=== PATIENT | female | born 1940 | race Caucasian/White ===

== ENCOUNTER → 2017-05-02 | Outpatient (REF) | payer MEDICARE, OTHER ==
[~2017-05-02] MED LIST: /WARF25TA OR; ALEN70TA39 PO; ASPI325T PO; ASPI325T28 PO; ATOR1TAB19 PO; CYAN1000 IM; DRIS1CAP PO; HYDR12.56 PO; IRBE150T3 PO; IRON325T3 PO; LEVO100T4 PO; LEVO75TA4 PO; LEVO88TA3 PO; LOSA50TA20 PO; MULTCAP PO; SIMV10TA2 PO; ULTR50TA PO; VITA200015 PO; VITA500C PO; calcium citrate OR; iron OR; vitamin B12 INJ
[2017-05-02 14:11] LABS: FOLATE > 24.0 NG/ML; VITAMIN B12 LEVEL 715 PG/ML
[2017-05-02 14:20] LABS: FERRITIN 201 NG/ML (8-252); PERCENT SATURATION 39.8 % (13.2-45.0); TOTAL IRON BINDING CAPACITY 249 UG/DL (250-450)
== END ==
LOC: M LAB REF 13:36
PROVIDERS: ATTEND Internal Medicine Nephrology
DX: D64.9 Anemia, unspecified (principal)

== ENCOUNTER → 2017-09-27 | Outpatient (CLI) | payer MEDICARE, OTHER | LOC: M WHC 09:06 | DX: Z12.31 Encounter for screening mammogram for malignant neoplasm of breast (principal) | CPT/HCPCS: 77067 ==

== ENCOUNTER → 2020-03-25 | Outpatient (REF) | payer MEDICARE, OTHER ==
[~2020-03-25] MED LIST changes: -/WARF25TA OR; +ASPI-527 PO; -ASPI325T28 PO; +COUM1TAB18 OR; -LOSA50TA20 PO; +LOSA50TA88 PO
[2020-03-25 18:32] LABS: IRON (FE) 37 UG/DL (50-170); TOTAL IRON BINDING CAPACITY 284 UG/DL (250-450)
[2020-03-25 18:44] LABS: VITAMIN B12 LEVEL 523 PG/ML
[2020-03-25 18:45] LABS: FOLATE > 24.0 NG/ML
== END ==
LOC: M LAB REF 17:15
PROVIDERS: ATTEND Nurse Practitioner Family
DX: D64.9 Anemia, unspecified (principal)

== ENCOUNTER → 2021-01-26 | Outpatient (REF) | payer MEDICARE, OTHER | LOC: M LAB REF 12:43 | PROVIDERS: ATTEND Nurse Practitioner Family | DX: E83.42 Hypomagnesemia (principal) ==

== ENCOUNTER → 2021-05-27 | Outpatient (REF) | payer MEDICARE, OTHER | LOC: M LAB REF 17:17 | PROVIDERS: ATTEND Nurse Practitioner Family | DX: E83.42 Hypomagnesemia (principal) ==

== ENCOUNTER → 2022-08-10 | Outpatient (REF) | payer MEDICARE, OTHER ==
[~2022-08-10] MED LIST changes: +LOSA50TA28 PO; -LOSA50TA88 PO
[2022-08-10 18:28] LABS: POTASSIUM SERUM 4.8 MMOL/L (3.5-5.1)
== END ==
LOC: M LAB REF 17:12
PROVIDERS: ATTEND Nurse Practitioner Family
DX: N18.31 Chronic kidney disease, stage 3a (principal)

== ENCOUNTER → 2022-09-05 | Outpatient (CLI) | payer MEDICARE, BC ==
[~2022-09-05] MED LIST changes: +ISOVUE-300 61% 100ML VIAL As Ordered ONE; +LIDOCAINE 1% MDV 20ML VIAL As Ordered ONE; +methylPREDNISolone SUSP 40MG/ML 1ML VIAL (DEPO MEDROL) As Ordered ONE
== END ==
LOC: M RAD 14:19
PROVIDERS: ATTEND Physician Assistant
DX: M16.11 Unilateral primary osteoarthritis, right hip (principal)
CPT/HCPCS: 20610; 77002; J1030; Q9967

== ENCOUNTER → 2023-11-30 | Outpatient (CLI) | payer MEDICARE, BC ==
[~2023-11-30] MED LIST changes: +CALCCHW4 PO; +FERR325T3 PO; -ISOVUE-300 61% 100ML VIAL As Ordered ONE; +MAGN400T2 PO; +MULT1CAP3 PO; +VITA250T27 PO; -methylPREDNISolone SUSP 40MG/ML 1ML VIAL (DEPO MEDROL) As Ordered ONE
[2023-11-30 12:28] VITALS: TEMP 98.6
[2023-11-30 13:10] VITALS: BP 178/73; O2SAT 99
[2023-11-30 13:37] LABS: BASO # 0.1 10^3/uL (0.0-0.2); BASO % 0.6 % (0.0-1.0); EOS # 0.1 10^3/uL (0.0-0.5); EOS % 1.5 % (0.0-3.0); HEMATOCRIT 27.4 % (36.0-47.0); HEMOGLOBIN 8.5 g/dl (12.0-15.5); LYMPH # 1.8 10^3/uL (1.5-5.0); LYMPH % 20.5 % (24.0-44.0); MEAN CORPUSCULAR HEMOGLOBIN 26.2 pg (27.0-33.0); MEAN CORPUSCULAR VOLUME 84.6 fl (80.0-96.0); MONO % 10.9 % (2.0-8.0); NEUTROPHILS # 5.8 10^3/uL (1.5-8.5); NEUTROPHILS % 66.3 % (36.0-66.0); PLATELET COUNT, AUTOMATED 453 10^3/uL (150-450); RED BLOOD COUNT 3.24 10^6/uL (4.00-5.40); WHITE BLOOD COUNT 8.7 10^3/uL (4.0-10.0)
[2023-11-30 13:49] LABS: INR 1.02; PROTHROMBIN TIME 13.1 SECONDS (12.5-14.5)
== END ==
LOC: M IRPRO 12:12
PROVIDERS: ATTEND Internal Medicine Medical Oncology
DX: D69.6 Thrombocytopenia, unspecified (principal); D64.9 Anemia, unspecified

== ENCOUNTER → 2025-02-04 | Outpatient (REF) | payer MEDICARE, BC ==
[~2025-02-04] MED LIST changes: +LEVO50TA5 PO; -LIDOCAINE 1% MDV 20ML VIAL As Ordered ONE; +SYNT75TA
== END ==
LOC: M SFHCDERM 17:44
PROVIDERS: ATTEND Dermatology
DX: L57.0 Actinic keratosis (principal)